=== PATIENT | female | born 2000 | race Caucasian/White ===

== ENCOUNTER 2019-03-06 10:38 | Emergency (ER) | payer BC ==
[~2019-03-06] VITALS: Ht 154.9 cm; Wt 56.7 kg
--- NOTE | 2019-03-06 10:38 | NUR ---
all items considered dangerous removed from room; pt placed in pysch scrubs all jewelry removed
[2019-03-06] MEDS: SODIUM CHLORIDE 0.9% 1000ML 1,000 ML IV STA ×2 (10:45→11:05)
--- NOTE | 2019-03-06 11:08 | Diagnostic Imaging Report ---
EXAM: CHEST SINGLE (PORTABLE) DATE: 03/06/2019 10:41 AM INDICATION: Medication overdose COMPARISON: None FINDINGS: The trachea is midline. The lungs are symmetrically expanded without evidence for large focal consolidation, pneumothorax, or significant pleural effusion. The cardiomediastinal silhouette and pulmonary vasculature are within normal limits. No acute osseous abnormality is identified. The surrounding soft tissues are unremarkable. IMPRESSION: No acute cardiopulmonary process identified. Signed by: Dr. Elliot Grimm MD on 03/06/2019 11:05 AM
[2019-03-06 11:17] LABS: BASOPHILS % 0.5 % (0.0-1.0); EOSINOPHILS % 0.5 % (0.0-6.0); HEMATOCRIT 43.4 % (34.2-44.1); HEMOGLOBIN 14.6 g/dL (12.0-16.0); LYMPHOCYTES # (AUTO) 2.1 (1.0-3.2); LYMPHOCYTES % 34.4 % (18.0-39.1); MEAN CORPUSCULAR HEMOGLOBIN 29.2 pg (28-32); MEAN CORPUSCULAR HGB CONC 33.6 g/dL (31-35); MEAN CORPUSCULAR VOLUME 86.8 fL (81-99); MONOCYTES # (AUTO) 0.4 (0.2-0.8); MONOCYTES % 6.1 % (4.4-11.3); NEUTROPHILS # (AUTO) 3.6 (2.1-6.9); NEUTROPHILS % 58.3 % (38.7-80.0); PLATELET COUNT 232 x10e3/uL (140-360); RED CELL DISTRIBUTION WIDTH 12.3 % (11.7-14.4)
--- NOTE | 2019-03-06 11:21 | NUR ---
pt belongings (clothes and jewelry) given to mom; mom signed form accepting responsibility
[2019-03-06 11:27] LABS: INR 1.08; PARTIAL THROMBOPLASTIN TIME 31.7 seconds (23.8-35.5); PROTHROMBIN TIME 14.5 seconds (11.9-14.5)
--- NOTE | 2019-03-06 11:29 | NUR ---
mom in room with pt
[2019-03-06 11:33] LABS: ALANINE AMINOTRANSFERASE 17 IU/L (0-55); ALBUMIN 4.5 g/dL (3.5-5.0); ALBUMIN/GLOBULIN RATIO 1.3 (0.8-2.0); ALKALINE PHOSPHATASE 58 IU/L (40-150); ANION GAP 15.6 mmol/L (8-16); BLOOD UREA NITROGEN 7 mg/dL (7-26); BUN/CREATININE RATIO 8 (6-25); CALCIUM 10.2 mg/dL (8.4-10.2); CARBON DIOXIDE 23 mmol/L (22-29); CHLORIDE 106 mmol/L (98-107); CREATINE KINASE 70 IU/L (29-168); CREATININE, SERUM 0.89 mg/dL (0.57-1.11); EST GLOMERULAR FILTRATION RATE > 60 ML/MIN (60-); GLUCOSE 109 mg/dL (74-118); POTASSIUM 3.6 mmol/L (3.5-5.1); SODIUM 141 mmol/L (136-145)
[2019-03-06 11:42] LABS: ACETAMINOPHEN < 3 ug/mL (10-30)
[2019-03-06 11:43] LABS: SALICYLATE < 5.0 mg/dL (0-30)
[2019-03-06 12:30] LABS: BILIRUBIN,URINE NEGATIVE (NEGATIVE); CLARITY,URINE SL CLOUDY (CLEAR); COLOR,URINE YELLOW (YELLOW); KETONES,URINE TRACE (NEGATIVE); LEUKOCYTE ESTERASE ,URINE NEGATIVE (NEGATIVE); NITRITE,URINE NEGATIVE (NEGATIVE); PROTEIN,URINE DIPSTICK NEGATIVE (NEGATIVE); URINE UROBILINOGEN 0.2 mg/dL (0.2 - 1)
--- NOTE | 2019-03-06 12:34 | NUR ---
NOTIFIED POISON CONTROL OF INGESTION OF 10 TRAZADONE,UNKNOWN INGESTION LAST NIGHT, SPOKE WITH WESLEY, CASE # [id number]. INSTREUCTED TO MONITOR FOR DROWSINESS, MUSCLE TWITCHING, AND ATAXIA AND IF EKG IS NORMAL AND TOXICOLOGY SCREEN NEGATIVE, THEN PATIENT IS "OK" FOR PSYCH EVAL.
[2019-03-06 12:41] LABS: AMPHETAMINES SCREEN,URINE NEGATIVE (NEGATIVE); BENZODIAZEPINES SCREEN,URINE NEGATIVE (NEGATIVE); PHENCYCLIDINE SCREEN,URINE NEGATIVE (NEGATIVE)
[2019-03-06 12:42] LABS: PREGNANCY TEST, URINE NEGATIVE (NEGATIVE)
[2019-03-06 12:43] LABS: BACTERIA,URINE MODERATE /HPF; RBC,URINE 0-5 /HPF (0-5); WBC,URINE (MAN) 0-5 /HPF (0-5)
--- NOTE | 2019-03-06 12:43 | NUR ---
MAT TEAM, SPOKE WITH SERENITY, STATES THAT SHE IS ENROUTE TO HOSPITAL AND ETA 40MIN.
[2019-03-06 12:44] LABS: EPITHELIAL CELLS,URINE MODERATE /LPF; MUCUS,URINE FEW (RARE)
--- NOTE | 2019-03-06 12:56 | NUR ---
SPOKE WITH MD, INITIATED MAT TEAM CALLED AND GAVE PT INFORMATION TO GET EVAL AND PLACEMENT STARTED.
--- NOTE | 2019-03-06 13:39 | NUR ---
mat team on site
--- NOTE | 2019-03-06 13:39 | NUR ---
per dr fuller pt is medically cleared
--- NOTE | 2019-03-06 13:39 | NUR ---
report given to mat team
--- NOTE | 2019-03-06 13:40 | NUR ---
mat team in room with pt
--- NOTE | 2019-03-06 13:55 | NUR ---
CALLED AND SPOKE WITH INTAKE AT [facility] THEY STATE THEY HAVE A FEMALE BED. , FAMILY AND MAT TEAM IN AGREEMENT MAT TEAM WILL INITIATE TRANSFER TO [facility] [phone] [id number] [place] [address]
--- NOTE | 2019-03-06 15:07 | NUR ---
SPOKE WITH SUSY AT [facility] GAVE HER CARMINA DIRECT LINE [phone] WILL FOLLOW UP TO MAKE CERTAIN THAT NURSE TO NURSE AND DOC TO DOC ARE COMPLETED TO BE ABLE TO SET UP TRANSPORT TO [facility].
--- NOTE | 2019-03-06 15:39 | NUR ---
nurse to nurse communication with barbara at [facility]
--- NOTE | 2019-03-06 15:42 | NUR ---
SPOKE WITH DAYAN FROM MAT TEAM CLEAR TO DO NURSE TO NURSE, WENT AND SPOKE WITH CARMINA IN ED AND HE STATES JUST GOT OFF PHONE WITH NURSE FROM [facility] THEY ARE CONTACTING THEIR DOC TO CALL OUR DOCTOR. AFTER THAT IS COMPLETED WE CAN CALL AMBULANCE AND SET UP TRANSPORT. NO WARRANT SO NO CONSTABLE IS NEEDED.
--- NOTE | 2019-03-06 16:22 | NUR ---
barbara bell called with Dr Morton phone number for doctor to doctor communication; Dr Hameed called on put on phone with Dr Solorzano
--- NOTE | 2019-03-06 16:24 | NUR ---
called barbara at [facility] to let her know doctor to doctor communication was done
--- NOTE | 2019-03-06 16:25 | NUR ---
barbara montelongo [facility] number [phone] and bobby zaldivar is contact
--- NOTE | 2019-03-06 16:27 | NUR ---
renu contacted to let her know nurse to nurse and doc to doc was done
--- NOTE | 2019-03-06 16:28 | NUR ---
[facility] contacted for transport to [facility]; eta of 30-45 min at [phone]
[2019-03-06 16:50] VITALS: BP 107/56
== END 2019-03-06 17:40 ==
LOC: EDBD 10:38 → ER 10:38
DX: T43.212A Poisoning by selective serotonin and norepinephrine reuptake inhibitors, intentional self-harm, initial encounter (principal); Y92.019 Unspecified place in single-family (private) house as the place of occurrence of the external cause; F41.9 Anxiety disorder, unspecified; F32.9 Major depressive disorder, single episode, unspecified; Z62.898 Other specified problems related to upbringing; Z63.0 Problems in relationship with spouse or partner
CPT/HCPCS: 36415; 71045; 80053; 80307; 80320; 80329 ×2; 81001; 81025; 82550; 82553; 84484; 84702; 85025; 85610; 85730; 87086; 93005; 99285; J7030

== ENCOUNTER 2019-09-18 13:59 | Emergency (ER) | payer BC ==
[~2019-09-18] VITALS: Ht 154.9 cm; Wt 56.7 kg
== END 2019-09-18 14:27 | disposition home or self-care (01) ==
LOC: ER 13:59
DX: T19.2XXA Foreign body in vulva and vagina, initial encounter (principal); F41.9 Anxiety disorder, unspecified
CPT/HCPCS: 99283